=== PATIENT | female | born 1930 | race Asian ===

== ENCOUNTER 2018-05-10 14:46 | Emergency (ER) | payer MEDICARE ==
[~2018-05-10] VITALS: Ht 157.5 cm; Wt 47.0 kg
[2018-05-10 16:21] LABS: BASOPHILS % 0.5 % (0.0-2.0); EOSINOPHILS % 1.9 % (0.0-5.0); HEMATOCRIT. 38.7 % (36.0-48.0); HEMOGLOBIN. 13.2 g/dL (12.0-16.0); LYMPHOCYTES % 45.1 % (20.0-50.0); MEAN CORPUSCULAR HEMOGLOBIN 33.5 pg (28.0-32.0); MEAN CORPUSCULAR VOLUME 98.3 fL (81.0-99.0); MONOCYTES % 8.3 % (2.0-8.0); NEUTROPHILS % 44.2 % (40.0-76.0); PLATELET 134 x1000/uL (130-400); RED BLOOD CELL COUNT 3.94 mill/uL (4.2-5.4); RED CELL DISTRIBUTION WIDTH 14.4 % (11.6-14.6)
[2018-05-10 16:27] LABS: CHLORIDE 107 mEq/L (98-107)
[2018-05-10 16:34] LABS: AMMONIA 76 uMol/L (<32)
[2018-05-10] MEDS ORDERED: LACTULOSE 20G/30ML UDC PO NR (17:30)
[2018-05-10 19:02] VITALS: BP 169/60
== END 2018-05-10 19:20 | disposition home or self-care (01) ==
LOC: ER 14:46
DX: K72.90 Hepatic failure, unspecified without coma (principal); R11.2 Nausea with vomiting, unspecified; R42 Dizziness and giddiness; I69.398 Other sequelae of cerebral infarction; R53.1 Weakness; Z91.81 History of falling
CPT/HCPCS: 36415; 70450; 71045; 80053; 82140; 82962; 83605; 83690; 83880; 84484; 85025; 87040; 93005; 99285